=== PATIENT | female | born 1945 | race American Indian/Alaskan Native ===

== ENCOUNTER 2018-11-25 18:03 | Emergency (ER) | payer MEDICARE ==
[2018-11-25] MEDS ORDERED: D50W (25GM) Syringe IV ONE ×2 (18:10)
--- NOTE | 2018-11-25 18:24 | Emergency Department Report ---
ED General Adult HPI - General Chief complaint: Hypoglycemia Stated complaint: LOW SUGAR Time Seen by Provider: 11/25/18 18:14 Source: patient, family, RN notes reviewed Mode of arrival: Ambulatory Limitations: No Limitations - History of Present Illness Initial comments: This is a 73-year-old female. The patient is not known to this provider previously. The patient is visiting from [place]. She goes back tomorrow. She reports that she has a follow-up with her primary care doctor early next week. Her past medical history includes hypertension and diabetes. She reports that she typically takes insulin regular, 20 units, subcutaneously, each morning, on a regular basis, and reports that she also takes 35 units of insulin NPH, once daily, and does not take any oral medications for her diabetes. She presents to the emergency room with a complaint of resolved hypoglycemia. Apparently, the patient was speaking bizarrely, possibly stuttering, possibly not acting right. The patient was found to be hypoglycemic and treated prior to my evaluation. Currently, the patient has no complaints. She states that she took her medications as directed. She had breakfast. She had lunch. She denies physical pain at this time. She reports this has happened to her in the past. She denies headache, neck pain, chest pain, abdominal pain, shortness of breath, urinary symptoms, skin rashes. She reports that she is ready for discharge. Her family endorses that she appears to be back to her normal neurologic baseline. -: Sudden Consistency: now resolved Improves with: medication, other Worsens with: none Associated Symptoms: denies other symptoms - Related Data Home Medications Medication Instructions Recorded Confirmed Last Taken Amlodipine Besylate 10 mg PO DAILY 11/25/18 11/25/18 11/25/18 Insulin NPH Human Isophane 0 unit SQ QDAY 11/25/18 11/25/18 11/25/18 [Novolin N] Insulin Regular, Human [Novolin R] 0 unit SUB-Q QDAY 11/25/18 11/25/18 11/25/18 Omeprazole 20 mg PO DAILY 11/25/18 11/25/18 11/25/18 Verapamil HCl [Verelan] 360 mg PO DAILY 11/25/18 11/25/18 11/25/18 acetaZOLAMIDE 1 tab PO DAILY 11/25/18 11/25/18 11/25/18 hydroCHLOROthiazide [HCTZ] 25 mg PO QDAY 11/25/18 11/25/18 11/25/18 Previous Rx's Medication Instructions Recorded Last Taken Type Nitrofurantoin [place]/M-Cryst 100 mg PO Q12HR #13 capsule 11/25/18 Unknown Rx [Macrobid CAP] Allergies Allergy/AdvReac Type Severity Reaction Status Date / Time Penicillins Allergy Swelling Verified 11/25/18 18:18 ED Review of Systems ROS: Stated complaint: LOW SUGAR Other details as noted in HPI Constitutional: denies: fever Eyes: denies: vision change ENT: denies: epistaxis Respiratory: denies: cough Cardiovascular: denies: chest pain Gastrointestinal: denies: abdominal pain, nausea, vomiting Genitourinary: denies: dysuria Skin: denies: lesions Neurological: other ED Past Medical Hx - Past Medical History Previous Medical History?: Yes Hx Hypertension: Yes Hx Diabetes: Yes Hx Renal Disease: Yes Additional medical history: Carotid stenosis 2004, PVD - Surgical History Past Surgical History?: Yes Hx Cholecystectomy: Yes Additional Surgical History: Carotid endarterectomy, C-sections, Hysterectomy - Social History Smoking Status: Former Smoker Substance Use Type: Prescribed - Medications Home Medications: Home Medications Medication Instructions Recorded Confirmed Last Taken Type Amlodipine Besylate 10 mg PO DAILY 11/25/18 11/25/18 11/25/18 History Insulin NPH Human Isophane 0 unit SQ QDAY 11/25/18 11/25/18 11/25/18 History [Novolin N] Insulin Regular, Human [Novolin R] 0 unit SUB-Q QDAY 11/25/18 11/25/18 11/25/18 History Nitrofurantoin [place]/M-Cryst 100 mg PO Q12HR #13 capsule 11/25/18 Unknown Rx [Macrobid CAP] Omeprazole 20 mg PO DAILY 11/25/18 11/25/18 11/25/18 History Verapamil HCl [Verelan] 360 mg PO DAILY 11/25/18 11/25/18 11/25/18 History acetaZOLAMIDE 1 tab PO DAILY 11/25/18 11/25/18 11/25/18 History hydroCHLOROthiazide [HCTZ] 25 mg PO QDAY 11/25/18 11/25/18 11/25/18 History ED Physical Exam - General Limitations: No Limitations General appearance: alert, in no apparent distress, obese - Head Head exam: Present: atraumatic, normocephalic - Eye Eye exam: Present: normal appearance, EOMI, other (visual acuity intact to finger counting, color perception, reading at a close distance). Absent: nystagmus - ENT ENT exam: Present: normal exam, normal orophraynx, mucous membranes moist, normal external ear exam - Neck Neck exam: Present: normal inspection, full ROM. Absent: tenderness, meningismus - Respiratory Respiratory exam: Present: normal lung sounds bilaterally. Absent: respiratory distress - Cardiovascular Cardiovascular Exam: Present: regular rate, normal rhythm, normal heart sounds. Absent: bradycardia, tachycardia, irregular rhythm, systolic murmur, diastolic murmur, rubs, gallop - GI/Abdominal GI/Abdominal exam: Present: soft. Absent: distended, tenderness, guarding, rebound, rigid, pulsatile mass - Extremities Exam Extremities exam: Present: normal inspection, full ROM, other (2+ pulses noted in the bilateral upper, lower extremities. Compartments soft. No long bony tenderness. The pelvis is stable.). Absent: calf tenderness - Back Exam Back exam: Present: normal inspection, full ROM. Absent: tenderness, CVA tenderness (R), paraspinal tenderness, vertebral tenderness - Neurological Exam Neurological exam: Present: alert, oriented X3, normal gait, other (Extraocular movements intact. Tongue midline. No facial droop. Facial sensation intact to light touch in the V1, V2, V3 distribution bilaterally. 5 and 5 strength in 4 extremities.. Sensation is intact to light touch in 4 extremities.). Absent: motor sensory deficit - Psychiatric Psychiatric exam: Present: normal affect, normal mood - Skin Skin exam: Present: warm, dry, intact, normal color. Absent: rash ED Course Vital Signs 11/25/18 11/25/18 11/25/18 18:05 18:35 18:44 Temperature 98.8 F 98.3 F Pulse Rate 95 H 89 Respiratory 18 17 Rate Blood Pressure 175/65 Blood Pressure 184/76 [Left] O2 Sat by Pulse 98 97 96 Oximetry 11/25/18 11/25/18 11/25/18 18:45 18:46 19:00 Temperature Pulse Rate 94 H 89 Respiratory 17 19 18 Rate Blood Pressure 184/76 184/76 Blood Pressure [Left] O2 Sat by Pulse 97 96 98 Oximetry 11/25/18 19:16 Temperature Pulse Rate 84 Respiratory 15 Rate Blood Pressure 170/76 Blood Pressure [Left] O2 Sat by Pulse 98 Oximetry - Reevaluation(s) Reevaluation #1: 11/25/18 18:45 Differential diagnosis, including but not limited to: Hypoglycemia, now resolved, renal insufficiency, hepatic insufficiency, accidental overdose, and appropriate dosing of medications Assessment and plan: 73-year-old female, known history of diabetes, taking 20 units of insulin regular, each morning, and reports taking 35 units of NPH insulin on a daily basis. The patient is afebrile, clinically sober, walking with a steady gait, with a GCS of 15. I suspect accidental overdose as the most likely etiologic cause of her resolved symptomatology. She is accompanied by numerous family members, who endorsed that they can watch over her, and she has follow-up with her primary care doctor within the week, by her own report. Highly doubt renal or hepatic insufficiency, but we will obtain screening laboratory studies and urinalysis. The patient will be observed in the emergency room. We will perform repeat Accu-Cheks. I have requested nursing team feed the patient. Reevaluation #2: 11/25/18 19:47 Laboratory studies reviewed and demonstrates renal insufficiency, and bacteriuria. Calculated creatinine clearance is :25 mL/min Creatinine clearance modified for overweight patient, using adjusted body weight of 57 kg (125 lbs). As per up-to-date recommendations, regular insulin should be adjusted as follows: Administer 75% of normal dose and monitor glucose closely. for insulin nph Dosing: Renal Impairment: Adult There are no dosage adjustments provided in the manufacturers labeling; insulin requirements may be reduced due to changes in insulin clearance or metabolism; monitor blood glucose closely. I went back to discuss these laboratory studies and results with the patient. She then informs me that she is aware of her history of renal insufficiency. She is going to follow up with her primary care doctor this Tuesday. She vomited times one, and stated "this hospital food is terrible." However, she is able to tolerate liquid feeds and tolerated her Macrobid without difficulty. The family is at the bedside, and indicates they can watch over the patient, she is suitable for discharge at this point in time 11/25/18 19:52 ED Medical Decision Making - Lab Data Result diagrams: 11/25/18 18:27 Vital Signs 11/25/18 11/25/18 11/25/18 18:05 18:44 18:45 Temperature 98.8 F 98.3 F Pulse Rate 95 H 89 Respiratory 18 17 17 Rate Blood Pressure 175/65 Blood Pressure 184/76 [Left] O2 Sat by Pulse 98 96 97 Oximetry Lab Results 11/25/18 Range/Units 18:11 POC Glucose 42 L (70-105) Critical care attestation.: If time is entered above; I have spent that time in minutes in the direct care o f this critically ill patient, excluding procedure time. ED Disposition Clinical Impression: History of hypoglycemia, Elevated blood pressure reading Disposition: -01 TO HOME OR SELFCARE Is pt being admited?: No Does the pt Need Aspirin: No Condition: Stable Instructions: Diabetic Hypoglycemia (ED) Additional Instructions: Follow-up with your primary care doctor within the next 3-5 days. Please note that patient's blood pressure was elevated in the emergency room. This should be followed up by her primary care physician. Long-term complications of hypertension and elevated blood pressure includes stroke, heart attack, disability, paralysis, loss of quality of life. Continue taking insulin regular, 15 units, each morning. Decrease insulin NPH dosing to 15 units, as directed. Please continue other outpatient medications, with the exception of benazepril, which should be discontinued secondary to kidney impairment. Do not take ibuprofen, Motrin, Naprosyn, Aleve. Follow-up with your primary care doctor within the next week for recheck of blood pressure and blood sugar. . Return to the emergency room right away with lethargy, irritability, projectile vomiting, change in mental status, confusion. cultures were sent today, and results will be available in the next 3-5 days. Chris dumont have a primary care doctor contact the medical record department to obtain culture results. Referrals: [facility] [Provider Group] - 3-5 Days
[2018-11-25 19:11] LABS: Albumin 3.5 g/dL (3.9-5); Calcium 8.9 mg/dL (8.4-10.2)
[2018-11-25 19:17] LABS: Bacteria,Urine 4+ /HPF (Negative); Bilirubin,Urine NEG (Negative); Blood,Urine SM (Negative); Color,Urine Yellow (Yellow); Mucus,Urine FEW /HPF; Urobilinogen,Urine < 2.0 mg/dL (<2.0)
[2018-11-25] MEDS ORDERED: ZOFRAN ONE (19:34)
[2018-11-25] MEDS ORDERED: ZOFRAN IV ONE (19:41)
[2018-11-25] MEDS ORDERED: MACROBID PO ONE (19:44)
[2018-11-25 20:27] VITALS: BP 163/78
== END 2018-11-25 20:15 | disposition home or self-care (01) ==
LOC: ED 18:03
DX: E11.649 Type 2 diabetes mellitus with hypoglycemia without coma (principal); I10 Essential (primary) hypertension; I73.9 Peripheral vascular disease, unspecified; Z79.4 Long term (current) use of insulin; Z88.0 Allergy status to penicillin; Z90.49 Acquired absence of other specified parts of digestive tract; Z90.710 Acquired absence of both cervix and uterus; Z87.442 Personal history of urinary calculi
CPT/HCPCS: 36415; 80053; 81001; 82962; 87086; 96374; 96375; 99283; J2405